=== PATIENT | male | born 1960 | race Caucasian/White ===

== ENCOUNTER 2020-09-02 09:38 | Emergency (ER) | payer BC ==
[2020-09-02 10:01] VITALS: BP 144/83; PULSE 88
--- NOTE | 2020-09-02 10:17 | EDM.PDOC ---
ED HPI GENERAL MEDICAL PROBLEM - General Chief Complaint: General Stated Complaint: SENT BY [facility] Time Seen by Provider: 09/02/20 10:06 Source of Information: Reports: Patient History Limitations: Reports: No Limitations - History of Present Illness INITIAL COMMENTS - FREE TEXT/NARRATIVE: 60-year-old male presents to the ED for evaluation of generalized muscular weak ness. Patient has a very rare disorder in which he is reacted to statins. 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 Patient did develop severe myopathy secondary to statin therapy and it did try multiple statins before they were last and discontinued 2 years ago due to the side effect profile. He believes the last statin he used was pravastatin. 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 Essentially this is an autoimmune disorder where his body continues to attack his muscles. He is approximately 301 patient's known to have this disorder in the country. He has had muscle biopsies done to prove that he does not have muscular dystrophy. He uses a gait aid of a walker at home. He sometimes requires assistance with his son to help him get up from the couch or bed. He has fallen out of bed twice in the last few months and now sleeps on the couch in the living room. He also built a bathroom onto his living room so that he has much easier distance to access the washroom. Feeling worse today with increased weakness. He we discussed his problems with his dozer operator in [facility]. She has advised that he seek out treatment here since the hospital is full there. Advised Solu-Medrol 1 g IV for 3 consecutive days. Patient is currently on oral prednisone was on 40 mg up until last , August 28. Since then he has been taking 80 mg daily a 40 mg morning and evening. He did take his 40 mg dose this morning. Disease process essentially started the beginning of June of this year. Of note the patient is a type II diabetic and has to use insulin to help control his blood sugars. 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 Denies: Activity (Activity.), Exercise, Lifting, Sick Contact, Trauma Associated Symptoms: Reports: Cough, Malaise (Gross cough.), Shortness of Breath, Weakness (Of year and generalized involving all of his muscles.). Denies: Confusion, Chest Pain, cough w sputum, Diaphoresis, Fever/Chills, Headaches, Loss of Appetite, Nausea/Vomiting, Rash, Seizure, Syncope Treatments PROGRAM CLERK: Reports: Other (see below) (Courses of steroids.) - Related Data Allergies Allergy/AdvReac Type Severity Reaction Status Date / Time Cokqkmn-Sta-Uef Reductase Allergy Other Verified 09/02/20 10:01 Inhibitor Home Meds: Home Meds Semaglutide [Ozempic] 1 applic INJECT SA 05/31/19 [History] Venlafaxine [Effexor] 75 mg PO DAILY 05/31/19 [History] metFORMIN [Glucophage XR] 1,000 mg PO BID 05/31/19 [History] Alendronate Sodium [Fosamax] 70 mg PO DAILY 09/02/20 [History] Enalapril Maleate [Vasotec] 5 mg PO DAILY 09/02/20 [History] Fish Oil/[place]-3 Fatty Acids [Fish Oil 1,000 MG] 1,000 mg PO DAILY 09/02/20 [History] Insulin Aspart [NovoLOG] 0 units SUBCUT QID 09/02/20 [History] Nitroglycerin 0.5 mg PO Q5M PRN 09/02/20 [History] predniSONE 80 mg PO DAILY 09/02/20 [History] Past Medical History Cardiovascular History: Reports: Stents Other Cardiovascular History: 3 stents Respiratory History: Reports: Sleep Apnea Gastrointestinal History: Reports: Hemorrhoids Musculoskeletal History: Reports: Gout, Other (See Below) (Patient has developed a necrotizing myositis which is felt to been have started from statin use.) Psychiatric History: Reports: Anxiety, Depression Endocrine/Metabolic History: Reports: Diabetes, Type II Social & Family History - Caffeine Use Caffeine Use: Reports: Energy Drinks - Living Situation & Occupation Living situation: Reports: Occupation: Retired Social History Comment: Patient was employed up until the beginning of June when he no longer could do his job. ED ROS GENERAL - Review of Systems Review Of Systems: See Below Constitutional: Reports: Malaise, Weakness, Fatigue, Weight Gain (Being on steroids.). Denies: Fever, Chills, Weight Loss HEENT: Reports: Glasses Respiratory: Reports: Shortness of Breath, Cough. Denies: Wheezing, Pleuritic Chest Pain Cardiovascular: Reports: Blood Pressure Problem, Dyspnea on Exertion, Orthopnea. Denies: Chest Pain (Regional smoker's cough), Claudication (Hypertension since starting steroids.), Edema, Lightheadedness, Palpitations Endocrine: Reports: Fatigue GI/Abdominal: Reports: No Symptoms : Reports: Other (And can be dark in color and has been keegan in the past combined with myoglobinuria) Musculoskeletal: Reports: Muscle Pain (Neurolyse muscle pain and severe weakness. This involves all of the his muscles.) Skin: Reports: No Symptoms Neurological: Reports: No Symptoms Psychiatric: Reports: No Symptoms ED EXAM, GENERAL - Physical Exam Exam: See Below Exam Limited By: No Limitations General Appearance: Alert, WD/WN, No Apparent Distress, Other (Temperature is 37.0 heart rate 88 and sinus respiratory to 20 with O2 sats of 97% room air BP minimally elevated 1 4483) Eye Exam: Bilateral Eye: Normal Inspection (No blepharal pallor or scleral icterus.), PERRL Head: Atraumatic, Normocephalic Neck: Normal Inspection, Supple, Full Range of Motion, Other. No: Carotid Bruit, Lymphadenopathy (L), Lymphadenopathy (R) Course - Vital Signs Last Recorded V/S: Last Vital Signs Temp 37.0 C 09/02/20 09:58 Pulse 88 09/02/20 09:58 Resp 20 09/02/20 09:58 BP 144/83 H 09/02/20 09:58 Pulse Ox 97 09/02/20 09:58 - Orders/Labs/Meds Orders: Active Orders 24 hr Category Date Time Status URINALYSIS W/MICROSCOPIC [UA W/MICROSCOPIC] [URIN] Stat Lab 09/02/20 10:25 Ordered Labs: Laboratory Tests 09/02/20 09/02/20 09/02/20 Range/Units 10:37 10:37 10:37 WBC 17.58 H (4.23-9.07) K/mm3 RBC 5.57 (4.63-6.08) M/mm3 Hgb 16.7 (13.7-17.5) gm/dl Hct 50.3 (40.1-51.0) % MCV 90.3 (79.0-92.2) fl MCH 30.0 (25.7-32.2) pg MCHC 33.2 (32.2-35.5) g/dl RDW Std Deviation 48.4 H (35.1-43.9) fL Plt Count 369 H (163-337) K/mm3 MPV 8.7 L (9.4-12.3) fl Neut % (Auto) 73.5 H (34.0-67.9) % Lymph % (Auto) 21.0 L (21.8-53.1) % [place] % (Auto) 4.3 L (5.3-12.2) % Eos % (Auto) 0.3 L (0.8-7.0) Baso % (Auto) 0.2 (0.1-1.2) % Neut # (Auto) 12.93 H (1.78-5.38) K/mm3 Lymph # (Auto) 3.69 H (1.32-3.57) K/mm3 [place] # (Auto) 0.76 (0.30-0.82) K/mm3 Eos # (Auto) 0.05 (0.04-0.54) K/mm3 Baso # (Auto) 0.03 (0.01-0.08) K/mm3 Manual Slide Review Normal smear ESR 4 (0-15) mm/hr PT 10.4 (9.7-12.0) SECONDS INR 0.97 APTT 25.5 (21.7-31.4) SECONDS Sodium (136-145) mEq/L Potassium (3.5-5.1) mEq/L Chloride (98-107) mEq/L Carbon Dioxide (21-32) mEq/L Anion Gap (5-15) BUN (7-18) mg/dL Creatinine (0.7-1.3) mg/dL Est Cr Clr Drug Dosing mL/min Estimated GFR (MDRD) (>60) mL/min BUN/Creatinine Ratio (14-18) Glucose (74-106) mg/dL Calcium (8.5-10.1) mg/dL Magnesium (1.8-2.4) mg/dl Total Bilirubin (0.2-1.0) mg/dL AST (15-37) U/L ALT (16-63) U/L Alkaline Phosphatase (46-116) U/L Creatine Kinase (39-308) U/L CK-MB (CK-2) (0-3.6) ng/ml C-Reactive Protein (<1.0) mg/dL NT-Pro-B Natriuret Pep (0-125) pg/mL Total Protein (6.4-8.2) g/dl Albumin (3.4-5.0) g/dl Globulin gm/dL Albumin/Globulin Ratio (1-2) TSH 3rd Generation (0.358-3.74) uIU/mL 09/02/20 09/02/20 09/02/20 Range/Units 10:37 10:37 10:37 WBC (4.23-9.07) K/mm3 RBC (4.63-6.08) M/mm3 Hgb (13.7-17.5) gm/dl Hct (40.1-51.0) % MCV (79.0-92.2) fl MCH (25.7-32.2) pg MCHC (32.2-35.5) g/dl RDW Std Deviation (35.1-43.9) fL Plt Count (163-337) K/mm3 MPV (9.4-12.3) fl Neut % (Auto) (34.0-67.9) % Lymph % (Auto) (21.8-53.1) % [place] % (Auto) (5.3-12.2) % Eos % (Auto) (0.8-7.0) Baso % (Auto) (0.1-1.2) % Neut # (Auto) (1.78-5.38) K/mm3 Lymph # (Auto) (1.32-3.57) K/mm3 [place] # (Auto) (0.30-0.82) K/mm3 Eos # (Auto) (0.04-0.54) K/mm3 Baso # (Auto) (0.01-0.08) K/mm3 Manual Slide Review ESR (0-15) mm/hr PT (9.7-12.0) SECONDS INR APTT (21.7-31.4) SECONDS Sodium 135 L (136-145) mEq/L Potassium 4.3 (3.5-5.1) mEq/L Chloride 98 (98-107) mEq/L Carbon Dioxide 25 (21-32) mEq/L Anion Gap 16.3 H (5-15) BUN 16 (7-18) mg/dL Creatinine 0.6 L (0.7-1.3) mg/dL Est Cr Clr Drug Dosing 134.20 mL/min Estimated GFR (MDRD) > 60 (>60) mL/min BUN/Creatinine Ratio 26.7 H (14-18) Glucose 196 H (74-106) mg/dL Calcium 8.5 (8.5-10.1) mg/dL Magnesium 2.2 (1.8-2.4) mg/dl Total Bilirubin 0.4 (0.2-1.0) mg/dL AST 153 H (15-37) U/L ALT 333 H (16-63) U/L Alkaline Phosphatase 43 L (46-116) U/L Creatine Kinase 4597 H (39-308) U/L CK-MB (CK-2) 298.2 H (0-3.6) ng/ml C-Reactive Protein <0.2 (<1.0) mg/dL NT-Pro-B Natriuret Pep 65 (0-125) pg/mL Total Protein 7.2 (6.4-8.2) g/dl Albumin 3.5 (3.4-5.0) g/dl Globulin 3.7 gm/dL Albumin/Globulin Ratio 1.0 (1-2) TSH 3rd Generation 2.479 (0.358-3.74) uIU/mL Meds: Medications Discontinued Medications Generic Name Dose Route Start Last Admin Trade Name Freq PRN Reason Stop Dose Admin Methylprednisolone Sodium 258 mls @ 258 mls/hr 09/02/20 10:25 Succinate 1,000 mg/ Sodium IV 09/02/20 10:26 Chloride ONETIME ONE Methylprednisolone Sodium 258 mls @ 258 mls/hr 09/02/20 10:30 09/02/20 10:45 Succinate 1,000 mg/ Sodium IV 09/02/20 11:29 258 mls/hr Chloride ONETIME ONE Administration - Radiology Interpretation Free Text/Narrative:: 60-year-old male presents to the ED for evaluation of continuing problems with generalized muscle weakness and pain. By history patient has developed a necrotizing myositis which is felt to have been precipitated by statin use. Last statin use was pravastatin probably 2 years ago. He did try several different medications due to his dyslipidemia. In the latter part of the summer he developed gradually increasing weakness in his muscles and was worked up for muscular dystrophy which was negative. He had a muscle biopsy performed on his left lateral thigh. Diagnosis is necrotizing myositis essentially an autoimmune disease attacking his own muscles with the precipitant felt to have been a statin medication. He has followed by rheumatology at [facility] in [place]. He has been maintained on high doses of prednisone and currently is on 40 mg of prednisone morning and bedtime for the last 4 days before this he was on 40 mg daily. Due to his gradually worsening condition is felt that he would benefit from pulse therapy with Solu-Medrol 1 g IV for 3 consecutive days. Plan he will have routine labs performed. I will then start 1 g of Solu- Medrol intravenously while he is in the hospital with plans to continue the other 2 g of Solu-Medrol on a daily basis over the next 2 days. This is providing there is no major metabolic abnormalities identified on exam through the laboratory today. - Re-Assessments/Exams Free Text/Narrative Re-Assessment/Exam: 09/02/20 12:18 White count is elevated at 17.58 no doubt due to steroid use. Differential is 73.5% neutrophils and 21% lymphocytes. Hemoglobin is 16.7 with hematocrit of 50.3 suggesting you are mildly volume depleted. Platelet count is normal today at 369,000. Sed rate is 4. PT is 10.4 with an INR of 0.97 PTT is 25.5. Sodium is 135 slightly low with a potassium of 4.3. Chloride is 98 with a bicarb of 25. Anion gap is mildly elevated at 16.3. BUN is 16 with a creatinine of 0.6 and a GFR greater than 60 indicating normal kidney function glucose 196. Calcium 8.5 magnesium 2.2 bilirubin is 0.4 with slightly elevated AST at 153 and ALT at 333. Alk phosphatase is normal at 43. Total CPK today is 4597. CK-MB fraction is 298.2. C-reactive protein is less than 0.2. BNP is 65 total protein 7.2 with an albumin fraction of 3.5 thyroid function is normal with a TSH of 2.479 Departure - Departure Time of Disposition: 12:23 Disposition: Home, Self-Care 01 Clinical Impression: Myositis associated antibody positive - Discharge Information *PRESCRIPTION DRUG MONITORING PROGRAM REVIEWED*: Not Applicable *COPY OF PRESCRIPTION DRUG MONITORING REPORT IN PATIENT MITZY: Not Applicable Referrals: Sukhdev Jasso MD [Primary Care Provider] - Forms: ED Department Discharge Additional Instructions: Evaluation in the emergency room today in regards to worsening generalized muscle weakness and pain secondary to myositis/myopathy can Boon to development of antibodies to HMG Co. A reductase receptors. This is an allergy to statin medications. Due to flareup you were treated with a gram of Solu-Medrol intravenously through the emergency room today in order to continue a gram tomorrow and a gram the next day intravenously and then reassess laboratory values. You are to return to prednisone 40 mg twice daily after the high-dose steroid infusions are done which would be starting Tuesday morning.Sep.06. Sepsis Event Note (ED) - Evaluation Sepsis Screening Result: No Definite Risk - Focused Exam Vital Signs: Vital Signs Temp Pulse Resp BP Pulse Ox 09/02/20 09:58 37.0 C 88 20 144/83 H 97 - My Orders Last 24 Hours: My Active Orders 09/02/20 10:25 URINALYSIS W/MICROSCOPIC [UA W/MICROSCOPIC] [URIN] Stat - Assessment/Plan Last 24 Hours: My Active Orders 09/02/20 10:25 URINALYSIS W/MICROSCOPIC [UA W/MICROSCOPIC] [URIN] Stat
== END 2020-09-02 13:40 | disposition home or self-care (01) ==
LOC: JD.ED 09:38
DX: M60.9 Myositis, unspecified (principal); F41.9 Anxiety disorder, unspecified; F32.9 Major depressive disorder, single episode, unspecified; E11.9 Type 2 diabetes mellitus without complications; Z88.8 Allergy status to other drugs, medicaments and biological substances; Z79.4 Long term (current) use of insulin; Z79.899 Other long term (current) drug therapy
CPT/HCPCS: 36415; 80053; 82550; 82553; 83735; 83880; 84443; 85025; 85610; 85652; 85730; 86140; 96365; 99284; J2930; J7050

== ENCOUNTER 2020-10-22 10:10 | Emergency (ER) | payer BC ==
[2020-10-22] MEDS ORDERED: Sodium Chloride 0.9% 10 ML Syringe FLUSH PRN (10:24)
--- NOTE | 2020-10-22 10:37 | EDM.PDOC ---
ED HPI GENERAL MEDICAL PROBLEM - General Chief Complaint: Respiratory Problem Stated Complaint: SOB Time Seen by Provider: 10/22/20 10:15 Source of Information: Reports: Patient History Limitations: Reports: No Limitations, Other (Is in the emergency department temp 96.7, pulse 90, respiratory rate 18, blood pressure 61/80, 94% on room air.) - History of Present Illness INITIAL COMMENTS - FREE TEXT/NARRATIVE: 60-year-old male presents to the emergency department from [facility] with complaints of shortness of breath. Patient states that he took his CellCept this morning and within an hour states he developed shortness of breath and increased mucus. Patient states he took CellCept for the first time about a week ago and states he had similar symptoms. States that he feels like he has increased mucus in his lungs and once he is able to cough that up he feels much better. He says that last week when the similar episode occurred he just put his feet up to "shift the fluid ". Patient denies any tongue swelling or feeling like his throat is closing off. Patient has a history of an autoimmune disorder and he is currently being treated for necrotizing myelitis. Onset: Today, Sudden - Related Data Allergies Allergy/AdvReac Type Severity Reaction Status Date / Time mycophenolate mofetil Allergy Swollen Verified 10/22/20 10:14 [From CellCept] Tongue Rxiyjaj-Cub-Age Reductase Allergy Other Verified 09/02/20 10:01 Inhibitor Home Meds: Home Meds Semaglutide [Ozempic] 1 applic INJECT SA 05/31/19 [History] Venlafaxine [Effexor] 75 mg PO DAILY 05/31/19 [History] metFORMIN [Glucophage XR] 1,000 mg PO BID 05/31/19 [History] Alendronate Sodium [Fosamax] 70 mg PO DAILY 09/02/20 [History] Enalapril Maleate [Vasotec] 5 mg PO DAILY 09/02/20 [History] Fish Oil/Spangler-3 Fatty Acids [Fish Oil 1,000 MG] 1,000 mg PO DAILY 09/02/20 [History] Insulin Aspart [NovoLOG] 0 units SUBCUT QID 09/02/20 [History] Nitroglycerin 0.5 mg PO Q5M PRN 09/02/20 [History] predniSONE 80 mg PO DAILY 09/02/20 [History] Past Medical History HEENT History: Reports: Impaired Vision Other HEENT History: wears glasses Cardiovascular History: Reports: Stents Other Cardiovascular History: 3 stents Respiratory History: Reports: Sleep Apnea Gastrointestinal History: Reports: Hemorrhoids Musculoskeletal History: Reports: Gout, Other (See Below) 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 Psychiatric History: Reports: Anxiety, Depression Endocrine/Metabolic History: Reports: Diabetes, Type II - Infectious Disease History Infectious Disease History: Reports: Chicken Pox, Measles, Mumps Social & Family History - Tobacco Use Tobacco Use Status *Q: Current Every Day Tobacco User Years of Tobacco use: 42 Packs/Tins Daily: 1.5 - Caffeine Use Caffeine Use: Reports: Coffee - Recreational Drug Use Recreational Drug Use: No - Living Situation & Occupation Living situation: Reports: Occupation: Retired ED ROS GENERAL - Review of Systems Review Of Systems: See Below Constitutional: Reports: No Symptoms ED EXAM, GENERAL - Physical Exam Exam: See Below Exam Limited By: No Limitations General Appearance: Alert, WD/WN, No Apparent Distress Eye Exam: Bilateral Eye: PERRL Ears: Hearing Grossly Normal Nose: Normal Inspection Throat/Mouth: Normal Inspection, Normal Lips, Normal Teeth, Normal Gums, Normal Oropharynx, Normal Voice, No Airway Compromise. No: Inflammation Head: Atraumatic, Normocephalic Neck: Normal Inspection, Supple, Non-Tender, Full Range of Motion Respiratory/Chest: No Respiratory Distress, Normal Breath Sounds, No Accessory Muscle Use, Chest Non-Tender, Crackles (Carrier). No: Respiratory Distress, Wheezing, Prolonged Expiration Cardiovascular: Normal Peripheral Pulses, Regular Rate, Rhythm, No Murmur. No: No Edema (3+ pitting edema noted to bilateral lower extremities patient states his doctor contributes this to the steroid use.) Peripheral Pulses: 2+: Radial (L), Radial (R), Dorsalis Pedis (L), Dorsalis Pedis (R) GI/Abdominal: Normal Bowel Sounds, Soft, Non-Tender, No Distention (Male) Exam: Deferred Rectal (Males) Exam: Deferred Back Exam: Normal Inspection, Full Range of Motion Extremities: Normal Inspection, Normal Range of Motion, Non-Tender, No Pedal Edema, Normal Capillary Refill, Pedal Edema (3 Plus pitting edema noted bilateral lower extremities) Neurological: Alert, Oriented, Normal Cognition Psychiatric: Normal Affect, Normal Mood Skin Exam: Warm, Dry, Intact, Normal Color, No Rash Lymphatic: No Adenopathy #1 Interpretation EKG Date: 10/22/20 Time: 10:19 Rhythm: NSR Rate (Beats/Min): 88 [place]: Normal P-Wave: Present QRS: Normal ST-T: Normal QT: Normal Comparison: NA - No Prior EKG EKG Interpretation Comments: Normal sinus rhythm per Dr. Parra interpretation. Course - Vital Signs Text/Narrative:: Patient denies any history of congestive heart failure and denies taking any diuretics, however on assessment he has 3+ pitting edema to his bilateral lower extremities and his lung sounds reveal crackles bilaterally. I have ordered a CBC, CMP, magnesium, CRP, proBNP, troponin, EKG, and a chest x-ray on this pa tient. Last Recorded V/S: Last Vital Signs Temp 96.7 F L 10/22/20 10:10 Pulse 90 10/22/20 10:10 Resp 18 10/22/20 10:10 BP Pulse Ox 94 L 10/22/20 10:10 - Orders/Labs/Meds Orders: Active Orders 24 hr Category Date Time Status EKG Documentation Completion [RC] STAT Care 10/22/20 10:22 Active Sodium Chloride 0.9% [Saline Flush] Med 10/22/20 10:24 Active 10 ml FLUSH ASDIRECTED PRN Saline Lock Insert [OM.PC] Stat Oth 10/22/20 10:24 Ordered Medication Orders Sodium Chloride (Saline Flush) 10 ml FLUSH ASDIRECTED PRN PRN Reason: Keep Vein Open Last Admin: 10/22/20 10:29 Dose: 10 ml Documented by: JODY Labs: Laboratory Tests 10/22/20 10/22/20 10/22/20 Range/Units 10:35 10:35 10:35 WBC 15.92 H (4.23-9.07) K/mm3 RBC 5.05 (4.63-6.08) M/mm3 Hgb 15.5 (13.7-17.5) gm/dl Hct 46.5 (40.1-51.0) % MCV 92.1 (79.0-92.2) fl MCH 30.7 (25.7-32.2) pg MCHC 33.3 (32.2-35.5) g/dl RDW Std Deviation 52.0 H (35.1-43.9) fL Plt Count 268 (163-337) K/mm3 MPV 8.4 L (9.4-12.3) fl Neut % (Auto) 77.5 H (34.0-67.9) % Lymph % (Auto) 16.8 L (21.8-53.1) % [place] % (Auto) 4.7 L (5.3-12.2) % Eos % (Auto) 0.1 L (0.8-7.0) Baso % (Auto) 0.1 (0.1-1.2) % Neut # (Auto) 12.36 H (1.78-5.38) K/mm3 Lymph # (Auto) 2.67 (1.32-3.57) K/mm3 [place] # (Auto) 0.75 (0.30-0.82) K/mm3 Eos # (Auto) 0.01 L (0.04-0.54) K/mm3 Baso # (Auto) 0.01 (0.01-0.08) K/mm3 Sodium 134 L (136-145) mEq/L Potassium 4.6 (3.5-5.1) mEq/L Chloride 98 (98-107) mEq/L Carbon Dioxide 27 (21-32) mEq/L Anion Gap 13.6 (5-15) BUN 20 H (7-18) mg/dL Creatinine 0.5 L (0.7-1.3) mg/dL Est Cr Clr Drug Dosing 161.04 mL/min Estimated GFR (MDRD) > 60 (>60) mL/min BUN/Creatinine Ratio 40.0 H (14-18) Glucose 185 H (74-106) mg/dL Calcium 9.1 (8.5-10.1) mg/dL Magnesium 1.9 (1.8-2.4) mg/dl Total Bilirubin 0.4 (0.2-1.0) mg/dL AST 43 H (15-37) U/L ALT 111 H (16-63) U/L Alkaline Phosphatase 35 L (46-116) U/L Creatine Kinase (39-308) U/L Troponin I 0.032 (0.00-0.056) ng/mL C-Reactive Protein <0.2 (<1.0) mg/dL NT-Pro-B Natriuret Pep 82 (0-125) pg/mL Total Protein 8.2 (6.4-8.2) g/dl Albumin 3.0 L (3.4-5.0) g/dl Globulin 5.2 gm/dL Albumin/Globulin Ratio 0.6 L (1-2) 12/30/20 Range/Units 10:48 WBC (4.23-9.07) K/mm3 RBC (4.63-6.08) M/mm3 Hgb (13.7-17.5) gm/dl Hct (40.1-51.0) % MCV (79.0-92.2) fl MCH (25.7-32.2) pg MCHC (32.2-35.5) g/dl RDW Std Deviation (35.1-43.9) fL Plt Count (163-337) K/mm3 MPV (9.4-12.3) fl Neut % (Auto) (34.0-67.9) % Lymph % (Auto) (21.8-53.1) % [place] % (Auto) (5.3-12.2) % Eos % (Auto) (0.8-7.0) Baso % (Auto) (0.1-1.2) % Neut # (Auto) (1.78-5.38) K/mm3 Lymph # (Auto) (1.32-3.57) K/mm3 [place] # (Auto) (0.30-0.82) K/mm3 Eos # (Auto) (0.04-0.54) K/mm3 Baso # (Auto) (0.01-0.08) K/mm3 Sodium (136-145) mEq/L Potassium (3.5-5.1) mEq/L Chloride (98-107) mEq/L Carbon Dioxide (21-32) mEq/L Anion Gap (5-15) BUN (7-18) mg/dL Creatinine (0.7-1.3) mg/dL Est Cr Clr Drug Dosing mL/min Estimated GFR (MDRD) (>60) mL/min BUN/Creatinine Ratio (14-18) Glucose (74-106) mg/dL Calcium (8.5-10.1) mg/dL Magnesium (1.8-2.4) mg/dl Total Bilirubin (0.2-1.0) mg/dL AST (15-37) U/L ALT (16-63) U/L Alkaline Phosphatase (46-116) U/L Creatine Kinase 789 H (39-308) U/L Troponin I (0.00-0.056) ng/mL C-Reactive Protein (<1.0) mg/dL NT-Pro-B Natriuret Pep (0-125) pg/mL Total Protein (6.4-8.2) g/dl Albumin (3.4-5.0) g/dl Globulin gm/dL Albumin/Globulin Ratio (1-2) Meds: Medications Generic Name Dose Route Start Last Admin Trade Name Freq PRN Reason Stop Dose Admin Sodium Chloride 10 ml 10/22/20 10:24 10/22/20 10:29 Saline Flush FLUSH 10 ml ASDIRECTED PRN Administration Keep Vein Open - Radiology Interpretation Free Text/Narrative:: Nothing acute seen on portable chest x-ray per radiologist report. - Re-Assessments/Exams Free Text/Narrative Re-Assessment/Exam: 10/22/20 11:37 Labs reveal WBC 15.92 however patient does take 80 mg of Solu-Medrol daily so this is likely due to steroids, sodium 134, BUN 20, creatinine 0.5, GFR greater than 60, glucose 185 which is also likely due to steroids, AST 43 ALT 111 alk phos 35 these liver enzymes are elevated however significantly decreased from when they were previously drawn, creatinine kinase 789 which is significantly decreased as well, troponin 0 0.032, C-reactive protein less than 0.2, proBNP 82. Patient states that he feels his breathing is much better than when he initially came into the emergency department. Patient states he feels much better than the last time he received the CellCept. O2 sats are still 94% on room air. At this point time and allow the patient to be discharged to home with strict instructions to return to the emergency department should his condition worsen or change. Patient should no longer take CellCept medication. Departure - Departure Time of Disposition: 11:41 Disposition: Home, Self-Care 01 Condition: Good Clinical Impression: Breath shortness - Discharge Information Instructions: Shortness of Breath, Adult, [id number] Referrals: Sukhdev Jasso MD [Primary Care Provider] - Forms: ED Department Discharge Additional Instructions: You are seen in the emergency department with complaints of shortness of breath. Lab work was unremarkable today regarding any cause for your shortness of breath. Your O2 saturations in the emergency department remained 94% or greater. You were not wheezing. Your chest x-ray was unremarkable. And your heart tracing, EKG, was unremarkable as well. Stop taking your CellCept. Should you start feeling short of breath again you could try to take Benadryl 25 to 50 mg. 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 A copy of your lab work is included in your discharge paperwork. Should your condition worsen or change please return to the emergency department. Sepsis Event Note (ED) - Evaluation Sepsis Screening Result: No Definite Risk - Focused Exam Vital Signs: Vital Signs Temp Pulse Resp Pulse Ox 10/22/20 10:10 96.7 F L 90 18 94 L - My Orders Last 24 Hours: My Active Orders 10/22/20 10:22 EKG Documentation Completion [RC] STAT 10/22/20 10:24 Sodium Chloride 0.9% [Saline Flush] 10 ml FLUSH ASDIRECTED PRN Saline Lock Insert [OM.PC] Stat - Assessment/Plan Last 24 Hours: My Active Orders 10/22/20 10:22 EKG Documentation Completion [RC] STAT 10/22/20 10:24 Sodium Chloride 0.9% [Saline Flush] 10 ml FLUSH ASDIRECTED PRN Saline Lock Insert [OM.PC] Stat
--- NOTE | 2020-10-22 11:13 | CR ---
Chest: Portable view of the chest was obtained. Comparison: No prior chest imaging. Heart size and mediastinum are within normal limits for portable technique. Lungs show no acute parenchymal change. Bony structures are grossly intact. Impression: 1. Nothing acute is seen on portable chest x-ray. Diagnostic code #1
[2020-10-22 12:03] VITALS: BP 147/76; PULSE 80
== END 2020-10-22 12:00 | disposition home or self-care (01) ==
LOC: JD.ED 10:10
DX: R06.02 Shortness of breath (principal); F17.210 Nicotine dependence, cigarettes, uncomplicated; E11.9 Type 2 diabetes mellitus without complications; Z79.4 Long term (current) use of insulin; Z88.8 Allergy status to other drugs, medicaments and biological substances; Z79.899 Other long term (current) drug therapy
CPT/HCPCS: 36415; 71045; 71045-26; 80053; 82550; 83735; 83880; 84484; 85025; 86140; 93005; 99285-25

== ENCOUNTER 2023-09-09 08:01 | Emergency (ER) | payer BC, MEDICARE ==
[2023-09-09 08:31] VITALS: PULSE 71
[2023-09-09 08:44] LABS: BASOPHILS PERCENT AUTO 0.5 % (0.0-1.0); EOSINOPHILS ABSOLUTE AUTO 0.1 K/mm3 (0.0-0.4); EOSINOPHILS PERCENT AUTO 0.9 % (0.0-6.0); HEMATOCRIT 44.3 % (42.0-52.0); HEMOGLOBIN 15.2 gm/dl (14.0-18.0); IMMATURE GRAN ABSOLUTE AUTO 0.02 K/mm3 (0.00-0.05); IMMATURE GRAN PERCENT AUTO 0.3 % (0.0-0.4); LYMPHOCYTES ABSOLUTE AUTO 2.6 K/mm3 (1.0-4.8); LYMPHOCYTES PERCENT AUTO 34.6 % (24.0-44.0); MEAN CORPUSCULAR HEMOGLOBIN 30.2 pg (28.0-32.0); MEAN CORPUSCULAR HGB CONC 34.3 g/dl (32.0-36.0); MEAN CORPUSCULAR VOLUME 88.1 fl (83.0-99.0); MEAN PLATELET VOLUME 8.9 fl (9.4-12.4); MONOCYTES ABSOLUTE AUTO 0.6 K/mm3 (0.0-0.8); MONOCYTES PERCENT AUTO 7.6 % (0.0-8.0); NEUTROPHILS ABSOLUTE AUTO 4.1 K/mm3 (1.8-7.7); NEUTROPHILS PERCENT AUTO 56.1 % (41.0-71.0); PLATELET COUNT,PLT 243 K/mm3 (150-400); RED BLOOD CELL COUNT 5.03 M/mm3 (4.52-5.90); WHITE BLOOD CELL COUNT,WBC 7.37 K/mm3 (3.9-11.3)
[2023-09-09] MEDS: Nitroglycerin 0.4 MG Tab.SL SL PRN ×3 (08:47→08:55)
[2023-09-09 09:09] LABS: A/G RATIO 0.8 (1-2); ALBUMIN 3.6 g/dl (3.4-5.0); ANION GAP 15.9 (5-15); BILIRUBIN TOTAL 0.4 mg/dL (0.2-1.0); BUN/CREATININE RATIO 15.7 (14-18); CREATININE 0.7 mg/dL (0.7-1.3); EST CRCL DRUG DOSING (CG) 110.82 mL/min; POTASSIUM,K 3.9 mEq/L (3.5-5.1); PROTEIN TOTAL,TP 8.3 g/dl (6.4-8.2)
[2023-09-09] MEDS: Nitroglycerin/D5W 25 MG/250 ML BOTTLE IV SCH ×2 (09:17→10:04)
[2023-09-09] MEDS ORDERED: Heparin Sodium 5,000 Units/ML Vial IVPUSH ONE (10:41)
[2023-09-09] MEDS ORDERED: Heparin Sodium/D5W 25,000 UNITS/500 ML BAG IV SCH (10:45)
[2023-09-09] MEDS ORDERED: Aspirin 81 MG Tab.Chew ONE (11:18)
[2023-09-09] MEDS ORDERED: Aspirin 81 MG Tab.EC PO ONE (11:19)
[2023-09-09] MEDS: Aspirin 81 MG Tab.Chew PO ONE ×2 (11:20→11:22)
[2023-09-09] MEDS ORDERED: Aspirin 81 MG Tab.Chew PO ONE (11:20)
[2023-09-09 19:39] VITALS: BP 155/82
== END 2023-09-09 11:35 ==
LOC: JD.ED 08:01
DX: I24.9 Acute ischemic heart disease, unspecified (principal); E11.9 Type 2 diabetes mellitus without complications; Z79.84 Long term (current) use of oral hypoglycemic drugs; Z79.4 Long term (current) use of insulin; Z79.899 Other long term (current) drug therapy; Z88.8 Allergy status to other drugs, medicaments and biological substances
CPT/HCPCS: 36415; 71045; 80053; 84484; 85025; 85049; 85730; 93005; 96365; 96366; 96368; 96376; 99285; A9270; J1644; J2305; 93010